=== PATIENT | male | born 1955 | race Two or more races ===

== ENCOUNTER 2020-06-13 05:25 | Day surgery (SDC) | payer OTHER ==
[~2020-06-13 05:25] MED LIST: IRBESARTAN-HCT1 EACH; SINGULAIR10 MG
== END 2020-06-13 15:50 | disposition home or self-care (01) ==
LOC: CIR.AMB 05:25
PROVIDERS: ATTEND Colon & Rectal Surgery
DX: K60.1 Chronic anal fissure (principal); Z20.822 Contact with and (suspected) exposure to COVID-19

== ENCOUNTER 2022-04-17 11:49 | Emergency (ER) | payer OTHER ==
[~2022-04-17] VITALS: Ht 180.3 cm; Wt 73.5 kg
[2022-04-17] MEDS ORDERED: SYMBICORT 16010.2 GM (13:04)
[2022-04-17] MEDS ORDERED: ANUSOL-HC30 G2 TOP (16:33)
== END 2022-04-17 17:14 | disposition home or self-care (01) ==
LOC: ER 11:49
DX: K60.2 Anal fissure, unspecified (principal)